=== PATIENT | male | born 1955 | race African-American/Black ===

== ENCOUNTER 2017-03-11 12:13 | Emergency (ER) | payer MEDICAID ==
[~2017-03-11] VITALS: Ht 177.8 cm; Wt 80.0 kg
[~2017-03-11 12:13] MED LIST: ALBU17AE26
[2017-03-11] MEDS ORDERED: MORPHINE SULFATE 4 MG/ML CPJ (NOT FOR IM USE) IV ONE (13:30)
[2017-03-11 14:03] LABS: BASOPHILS % 1.4 % (0.0-2.0); EOSINOPHILS % 2.6 % (0.0-5.0); LYMPHOCYTES % 16.1 % (20.0-50.0); MEAN CORPUSCULAR HEMOGLOBIN 29.3 pg (28.0-32.0); MEAN CORPUSCULAR VOLUME 87.7 fL (80.0-94.0); MEAN PLATELET VOLUME 8.4 fl (7.4-10.4); MONOCYTES % 10.1 % (2.0-8.0); NEUTROPHILS % 69.8 % (40.0-76.0); PLATELET 308 x1000/uL (130-400); RED BLOOD CELL COUNT 4.79 mill/uL (4.7-6.1); RED CELL DISTRIBUTION WIDTH 13.4 % (11.6-14.6)
[2017-03-11] MEDS ORDERED: KETOROLAC 30MG/ML VIAL IV ONE (15:15)
[2017-03-11] MEDS ORDERED: HYDROCODONE/APAP 7.5/325MG 1 TAB TABLET PO ONE (16:45)
[2017-03-11 16:46] VITALS: BP 121/62
== END 2017-03-11 17:30 | disposition home or self-care (01) ==
LOC: ER 12:20
DX: N43.3 Hydrocele, unspecified (principal); K40.90 Unilateral inguinal hernia, without obstruction or gangrene, not specified as recurrent; I10 Essential (primary) hypertension; N40.0 Benign prostatic hyperplasia without lower urinary tract symptoms
CPT/HCPCS: 36415; 76870; 85025; 93976; 96374; 96375; 99285; J1885; J2270; Z7610